=== PATIENT | male | born 1965 | race African-American/Black ===

== ENCOUNTER 2018-08-18 18:20 | Emergency (ER) | payer BC ==
[~2018-08-18] VITALS: Ht 195.6 cm; Wt 136.1 kg
[2018-08-18] MEDS ORDERED: ENTYVIO300 MG IV (18:31)
[2018-08-18] MEDS ORDERED: ULTRAM 50MG TAB50 MG PO (19:46)
[2018-08-18] MEDS ORDERED: CYCLOBENZAPRINE5 MG PO (19:46)
== END 2018-08-18 20:01 | disposition home or self-care (01) ==
LOC: ER 18:20
DX: S16.1XXA Strain of muscle, fascia and tendon at neck level, initial encounter (principal); M62.830 Muscle spasm of back; M25.532 Pain in left wrist; M25.551 Pain in right hip; M51.36 Other intervertebral disc degeneration, lumbar region; Z88.0 Allergy status to penicillin; V43.52XA Car driver injured in collision with other type car in traffic accident, initial encounter; Y93.89 Activity, other specified; Y92.89 Other specified places as the place of occurrence of the external cause; Y99.8 Other external cause status

== ENCOUNTER 2018-09-09 15:48 | Emergency (ER) | payer BC ==
[~2018-09-09] VITALS: Ht 182.9 cm; Wt 138.3 kg
[~2018-09-09 15:48] MED LIST: CYCLOBENZAPRINE5 MG PO; ENTYVIO300 MG IV; ULTRAM 50MG TAB50 MG PO
[2018-09-09] MEDS ORDERED: CYCLOBENZAPRINE5 MG PO (17:24)
[2018-09-09] MEDS ORDERED: BUTALB-APAP-CA1 EACH PO (17:24)
[2018-09-09 17:33] VITALS: BP 131/101
== END 2018-09-09 17:37 | disposition home or self-care (01) ==
LOC: ER 15:48
DX: S16.1XXA Strain of muscle, fascia and tendon at neck level, initial encounter (principal); G44.209 Tension-type headache, unspecified, not intractable; K50.90 Crohn's disease, unspecified, without complications; I10 Essential (primary) hypertension; Z88.0 Allergy status to penicillin; V89.2XXA Person injured in unspecified motor-vehicle accident, traffic, initial encounter; Y93.89 Activity, other specified; Y92.410 Unspecified street and highway as the place of occurrence of the external cause; Y99.8 Other external cause status